=== PATIENT | female | born 2000 | race Caucasian/White ===

== ENCOUNTER 2022-09-03 19:39 | Emergency (ER) | payer BC ==
[~2022-09-03] VITALS: Ht 175.3 cm; Wt 86.4 kg
[2022-09-03 19:51] VITALS: TEMP 98
[2022-09-03] MEDS ORDERED: PRIL40 PO (20:45)
[2022-09-03 21:07] VITALS: BP 134/78; PULSE 76
== END 2022-09-03 21:08 | disposition home or self-care (01) ==
LOC: COL.ER 19:39
DX: R10.13 Epigastric pain (principal)

== ENCOUNTER 2022-09-20 14:29 | Day surgery (SDC) | payer BC ==
[~2022-09-20] VITALS: Ht 175.3 cm; Wt 105.6 kg
[~2022-09-20 14:29] MED LIST: PRIL40 PO
[2022-09-20] MEDS ORDERED: CARAFATE 1GM1 G PO (15:32)
[2022-09-20 15:53] VITALS: BP 138/67; PULSE 64; TEMP 97.6
[2022-09-20 17:20] VITALS: BP 125/75; PULSE 82; TEMP 97.6
[2022-09-20 17:35] VITALS: BP 118/89; PULSE 82
[2022-09-20 17:45] VITALS: BP 129/88; PULSE 80
--- NOTE | 2022-09-20 17:50 | NUR ---
1720 RETURNS TO ROOM 3 PER CART. AWAKE, ALERT. AMBULATES TO RECLINER WITH STANDBY ASSIST. RESP UNLABORED. DENIES NAUSEA ABD PAIN OR DYSPHAGIA. VITAL SIGNS OBTAINED. CALL LIGHT AT SIDE. FRIEND IN ROOM. 1721 DR. CHRISTIANSEN HERE TO VISIT WITH PATIENT 1730 TOLERATES PO JUICE AND PUDDING WITHOUT NAUSEA. SWALLOWS WITHOUT DIFFICULTY 1735 DISCHARGE INSTRUCTIONS REVIEWED. PATIENT VERBALIZES UNDERSTANDING. COPY PROVIDED IN DISCHARGE FOLDER. 1745 DRESSES SELF
== END 2022-09-20 17:53 | disposition home or self-care (01) ==
LOC: SDCO 14:29
DX: R10.13 Epigastric pain (principal); Q43.1 Hirschsprung's disease; K59.09 Other constipation; K82.4 Cholesterolosis of gallbladder; K21.9 Gastro-esophageal reflux disease without esophagitis
CPT/HCPCS: J2704; J7120